=== PATIENT | female | born 1940 | race Caucasian/White ===

== ENCOUNTER → 2017-01-10 | Outpatient (CLI) | payer MEDICARE ==
[2016-09-27 12:33] VITALS: BP 109/71
[~2017-01-10] MED LIST: ACET325T9 PO; ALPR0.25 PO; ALPR0.5T6 PO; ATOR40TA PO; ATOR40TA59 PO; CALC-98 PO; CANA300T PO; CARB1TAB2 PO; CHOL10003 PO; CHOL2000 PO; CIPR500T PO; CLON0.5T PO; CLON0.5T3 PO; CYAN10005 PO; DICL100G18 TP; DROX300C PO; FERR-26 PO; FLUC100T7 PO; FLUD0.1T PO; GLUC100018 PO; HALO2TAB PO; HYDR-2758 PO; IBUP200T43 PO; INSU100V13 SQ; LACT1CAP6 PO; LEVO40CA PO; LORA0.5T PO; MECL25TA3 PO; METF1000 PO; MIDO10TA PO; MIDO5TAB PO; MIRT15TA2 PO; MULT-650 PO; NYST1POW2 PO; OMEP20TA63 PO; PIOG15TA42 PO; POLY255P PO; QUET25TA5 PO; ROPI0.5T PO; ROPI1TAB2 PO; SERT25TA PO; SIME125C PO; SITA1TAB11 PO; SITA1TAB7 PO; TRAM50TA PO; VENL75TA PO; VIT1CAPS17 PO; ZOLP5TAB5 PO; [UNRECOGNIZED DRUG - OTHER]; tumeric PO
--- NOTE | 2017-01-10 10:13 | RAD ---
Indication chronic pain. AP and lateral views of the left knee were obtained. Note is made of a previous examination 03/07/2015. No acute finding is seen. Total knee replacement is noted similar to the previous exam. Significant joint fluid is not seen. There is suspect bony demineralization IMPRESSION:: Total knee replacement. No acute finding
== END | disposition home or self-care (01) ==
LOC: DXRADRC 09:33
PROVIDERS: ATTEND Physician Assistant
DX: M25.562 Pain in left knee (principal)
CPT/HCPCS: 73560

== ENCOUNTER → 2017-04-05 | Outpatient (CLI) | payer MEDICARE ==
[2016-09-27 12:33] VITALS: BP 109/71
--- NOTE | 2017-04-05 16:13 | RAD ---
Indication left-sided rib pain. A single view of the chest was obtained as well as films targeted to left ribs. The chest is compared to a study 02/14/2015. The heart and pulmonary vessels appear normal. The lungs are clear of acute infiltrates. There is no significant pleural fluid. There is no pneumothorax films targeted to left ribs appear unremarkable. IMPRESSION: No acute finding seen in the chest. Normal plain films left ribs
== END | disposition home or self-care (01) ==
LOC: DXRADRC 15:34
PROVIDERS: ATTEND Physician Assistant
DX: R07.81 Pleurodynia (principal); W19.XXXA Unspecified fall, initial encounter
CPT/HCPCS: 71101

== ENCOUNTER 2018-08-04 08:21 | Emergency (ER) | payer MEDICARE ==
[~2018-08-04] VITALS: Ht 167.6 cm; Wt 50.9 kg
[~2018-08-04 08:21] MED LIST changes: +ACET500T68 PO; +CARB15DR3 EACHEYE; +CLON0.5T11 PO; -CLON0.5T3 PO; +CRESTOR10 MG PO; -FERR-26 PO; +FERR325T14 PO; +HYDR-2155 PO; -HYDR-2758 PO; -IBUP200T43 PO; +IBUP200T44 PO; +IBUP800T19 PO; +INSU100I11 SQ; +MELA3TAB2 PO; +MIRT15TA PO; +MODA100T26 PO; +NYST15PO9 TP; +POLY17PO5 PO; -POLY255P PO; +POLY255P11 PO; +SENN-80 PO
[2018-08-04] MEDS ORDERED: PROPOFOL 100 ML IV ONE (08:56)
[2018-08-04] MEDS ORDERED: ROCURONIUM 50 MG/5 ML VIAL. ONE (09:00)
[2018-08-04] MEDS ORDERED: PROPOFOL 10,000 MCG/ML (20ML) VIAL IV ONE (09:00)
[2018-08-04] MEDS ORDERED: ETOMIDATE 40 MG/20 ML VIAL. IV ONE (09:00)
[2018-08-04] MEDS ORDERED: PROPOFOL 100 ML IV PRN (09:00)
[2018-08-04 09:04] LABS: BASO % 0 % (0-3); EOS % 0 % (0-3); HEMATOCRIT 34.4 % (36.0-47.0); HEMOGLOBIN 10.7 g/dL (12.0-15.5); LYMPH # 1.6 x10^3/uL (1.0-4.8); LYMPH % 5 % (24-48); MEAN CORPUSCULAR HEMOGLOBIN 30 pg (25-35); MEAN CORPUSCULAR HGB CONC 31 g/dL (31-37); MEAN CORPUSCULAR VOLUME 97 fL (79-100); MONO # 1.4 x10^3/uL (0.0-1.1); MONO % 5 % (0-9); NEUT % 90 % (31-73); PLATELET COUNT 330 x10^3/uL (140-400); RED BLOOD COUNT 3.56 x10^6/uL (3.50-5.40); RED CELL DISTRIBUTION WIDTH 12.6 % (11.5-14.5)
[2018-08-04 09:05] LABS: ALBUMIN 3.7 g/dL (3.4-5.0); CALCIUM 9.5 mg/dL (8.5-10.1); CREATININE 1.4 mg/dL (0.6-1.0); GFR 36.6; TOTAL BILIRUBIN 0.2 mg/dL (0.2-1.0); TOTAL PROTEIN 7.4 g/dL (6.4-8.2)
--- NOTE | 2018-08-04 09:13 | RAD ---
Portable chest, 08/04/2018: HISTORY: Patient unresponsive Comparison is made to a study from 03/20/2018. An ET tube is in place with its tip located well above the filomena. A tube overlying the left upper quadrant of the abdomen is probably a gastrostomy tube. The heart size and pulmonary vascularity are normal. There is calcific plaquing of the aorta. There is minimal streaky infrahilar atelectasis/infiltrate on the right. The left lung is clear. There is no evidence of pneumothorax or pleural fluid. The bony structures are demineralized. IMPRESSION: 1. The ET tube is in satisfactory position. 2. Minimal right basilar atelectasis/infiltrate. Electronically signed by: Hermes Wiley MD (08/04/2018 9:08 AM) [facility]
[2018-08-04] MEDS ORDERED: CALCIUM GLUCONATE 1,000 MG/10 ML VIAL IV ONE (09:15)
[2018-08-04] MEDS ORDERED: INSULIN REGULAR 100 UNIT/ML 3ML VIAL. IV ONE (09:15)
--- NOTE | 2018-08-04 09:19 | PHYS DOC ---
Past History Past Medical History: Anemia, Arthritis, CAD, Dementia, Diabetes Past Surgical History: Appendectomy, Cholecystectomy, Hysterectomy, Knee Replacement, Other Smoking: Non-smoker Alcohol Use: None Drug Use: None Adult General Chief Complaint Chief Complaint: DYSPNEA/RESPIRATOY DISTRESS HPI HPI 77 yo female presents via EMS found unresponsive at the senior care. Patient comes from a senior care where she was reportedly found this morning unresponsive with agonal breathing. EMS was called. There is some confusion as to what the patient had decreased awareness and difficult to breathing last night or this all started sometime this morning. The senior care report is conflicting. We were initially reported hypoglycemia by the care facility, but EMS had a high blood sugar. The patient was found to have respiratory distress with agonal respirations. They were able to bag the patient during transport and got her saturations up to 94%. She was initially in the mid 80s. Patient's last known time well is last night. The patient is unable to provide any further history. Review of Systems Review of Systems Patient was unresponsive on arrival Current Medications Current Medications Current Medications Medications (Trade) Dose Ordered Sig/Jacey Start Time Stop Time Status Last Admin Dose Admin Propofol 100 ml @ As Directed STK-MED ONCE 08/04/18 08:56 08/04/18 08:58 DC Allergies Allergies Allergies Coded Allergies Type Severity Reaction Last Updated Verified Penicillins Allergy Intermediate 03/20/18 Yes proparacaine Allergy Intermediate 03/20/18 Yes I S O L A T I O N *CONTACT* Allergy Unknown 03/25/18 Yes Physical Exam Physical Exam Constitutional: Well developed, well nourished, agonal breathing, severe distress. [] HENT: Normocephalic, atraumatic, bilateral external ears normal, swollen tongue , no oral exudates, nose normal. [] Eyes: Pupils with some reactivity bilaterally, conjunctiva normal, no discharge. [] Neck: supple, no stridor. [] Cardiovascular:Heart rate regular rhythm, no murmur [] Lungs & Thorax: Bilateral breath sounds clear to auscultation, with minimal respiratory effort. Very shallow agonal breaths [] Abdomen: Feeding tube in place, no abnormal skin findings[] Skin: Warm, dry, no erythema, no rash. [] Back: No signs of trauma. [] Extremities: No cyanosis, no clubbing, no edema. [] Neurologic: Unable to determine due to unresponsiveness[] Psychologic: Unable to determine due to unresponsiveness[] EKG EKG [] Radiology/Procedures Radiology/Procedures [] Impressions: Portable chest, 08/04/2018: HISTORY: Patient unresponsive Comparison is made to a study from 03/20/2018. An ET tube is in place with its tip located well above the filomena. A tube overlying the left upper quadrant of the abdomen is probably a gastrostomy tube. The heart size and pulmonary vascularity are normal. There is calcific plaquing of the aorta. There is minimal streaky infrahilar atelectasis/infiltrate on the right. The left lung is clear. There is no evidence of pneumothorax or pleural fluid. The bony structures are demineralized. IMPRESSION: 1. The ET tube is in satisfactory position. 2. Minimal right basilar atelectasis/infiltrate. Electronically signed by: Hermes Wiley MD (08/04/2018 9:08 AM) [facility] DICTATED AND SIGNED BY: HERMES WILEY MD DATE: 08/04/18905 CC: OLEKSANDR MADSEN DO; KISHOR ARAMBULA PA Course & Med Decision Making Course & Med Decision Making Pertinent Labs and Imaging studies reviewed. (See chart for details) On arrival, the patient did appear to be in obvious respiratory distress. Her initial blood sugar was over 300. We were able to bag her with supplemental oxygen and had an O2 sat of 96%. We obtained initial lab work well continuing to bag the patient. It was obvious that the patient's breathing was not going to rapidly improve despite her normal O2 sat, so the decision was made to intubate her. See note below for more details. The patient's initial labs showed a troponin of 0.364. Review of her chart shows she's had previous troponins are similar. Her EKG did not show acute ST elevation. Her lactic acid was 3.8 and a potassium 6.0. The patient was given 1 g calcium gluconate and 10 units of regular insulin. No supplemental dextrose was given due to the patient' s elevated blood sugar. The patient received a second liter of normal saline. The patient checks her x-ray was suggestive of possible infiltrate. Her urine was also suggestive of infection. We gave her her 750 mg of levofloxacin. Her head CT did not show any acute findings. I discussed the patient with Dr. Lugo and he will accept the patient for admission at [facility] in the ICU. Intubation note: I used 0.3mg/kg etomidate and 0.6mg/kg rocuronium for RSI. Once the patient was adequately sedated and paralyzed, I used a #3 Prado blade to visualize the vocal cords. I was able to visualize them and placed a 7.5 mm ET tube. I watched the tube pass through the vocal cords. Auscultation of the chest had bilateral breath sounds. There was good color change on the colorimetric end tidal CO2 device. The ET tube was secured and a chest x-ray was performed. The ET tube was adequately placed. The patient was placed on a ventilator at 14 respirations a minute, 450 mL tidal volume, and 40% O2. We were able to achieve adequate oxygen saturation of 95%. The patient was placed on a propofol drip to maintain sedation. Greater than 35 minutes of critical care time was spent on this patient exclusive of other billable procedures. [] Dragon Disclaimer Dragon Disclaimer This electronic medical record was generated, in whole or in part, using a voice recognition dictation system. Departure Departure: Impression: Primary Impression: Respiratory failure Additional Impressions: Hyperkalemia Lactic acidosis Elevated troponin UTI (urinary tract infection) Aspiration pneumonia Disposition: XFER T-COUNT INCLUDES THE [facility] Condition: CRITICAL Referrals: KISHOR ARAMBULA (PCP) Problem Qualifiers Primary Impression: Respiratory failure Chronicity: acute Respiratory failure complication: hypoxia Qualified Codes : J96.01 - Acute respiratory failure with hypoxia Additional Impressions: UTI (urinary tract infection) Urinary tract infection type: acute cystitis Hematuria presence: with hematuria Qualified Codes: N30.01 - Acute cystitis with hematuria Aspiration pneumonia Aspiration pneumonia type: unspecified Laterality: right Lung location: lower lobe of lung Qualified Codes: J69.0 - Pneumonitis due to inhalation of food and vomit OLEKSANDR MADSEN DO Aug 04, 2018 09:19
[2018-08-04 09:31] LABS: % BANDS 2 % (0-9); % LYMPHS 6 % (24-48); % MONOS 8 % (0-10); % SEGS 84 % (35-66); PLT ESTIMATE ADEQUATE (ADEQUATE)
[2018-08-04 09:33] LABS: OVALOCYTES OCC
[2018-08-04 09:52] LABS: AMORPHOUS SEDIMENT,UR PRESENT /HPF; BACTERIA,URINE MANY /HPF (0-FEW); BILIRUBIN,URINE NEG (NEG); CLARITY,URINE CLOUDY; COLOR,URINE YELLOW; GLUCOSE,URINE 250 mg/dL (NEG); HYALINE CASTS, URINE OCC /HPF; NITRITE,URINE NEG (NEG); SQUAMOUS EPITHELIAL CELL,UR OCC /LPF; UROBILINOGEN,URINE 0.2 mg/dL (0.2 mg/dL)
[2018-08-04 10:21] VITALS: BP 189/84
--- NOTE | 2018-08-04 10:26 | RAD ---
PQRS Compliance Statement: One or more of the following individualized dose reduction techniques were utilized for this examination: 1. Automated exposure control 2. Adjustment of the mA and/or kV according to patient size 3. Use of iterative reconstruction technique CT HEAD WITHOUT CONTRAST History: FOUND UNRESPONSIVE IN ASSISTED, UNKNOWN TIME OF ONSET. PT HAS BEEN INTUBATED IN ER. HAS FEEDING TUBE FOR DYSPHAGIA. Comparison: CT head without contrast March 20, 2018. Procedure: Axial images are obtained of the head from the skull base through the vertex without IV contrast. Findings: The ventricles and sulci are prominent, consistent with age-related cerebral atrophy. There is moderate supratentorial white matter hypoattenuation. This is a nonspecific finding but is commonly due to chronic small vessel ischemic disease in a patient of this age. No mass-effect, midline shift, hemorrhage, extra-axial fluid collection, or obvious acute infarction is identified. Basilar cisterns are patent. Bone windows demonstrate no acute calvarial abnormality. The visualized paranasal sinuses are clear. Mastoid air cells are well aerated. IMPRESSION: 1. No acute intracranial abnormality. 2. Moderate supratentorial white matter changes of chronic small vessel ischemic disease. 3. Generalized cerebral atrophy. Electronically signed by: Osito Aramubla MD (08/04/2018 10:22 AM) [id number]
[2018-08-04] MEDS ORDERED: IV NORMAL SALINE 1,000ML 1,000 ML IV ONE (11:00)
[2018-08-04 11:18] LABS: BGAS PH 7.31 (7.35-7.45)
[2018-08-04] MEDS ORDERED: INSULIN LISPRO 300 UNITS/3 ML INSULN.PEN. SQ SCH (11:30)
[2018-08-05 12:30] LABS: TOXIC GRANULATION PRESENT
--- NOTE | 2018-08-08 07:04 | EKG ---
[address] [address] Test Date: 2018-08-04 Test Time: 08:23:05 Pat Name: MAYURI MANN Department: Room: Gender: F [employer]ach Truck Operator: EARNEST : 1940 Requested By: OLEKSANDR MADSEN Order Number: [id number] Reading MD: Adonay Staley MD Measurements Intervals [place] Rate: 71 P: 90 WV: 162 QRS: -24 QRSD: 96 T: 129 QT: 410 QTc: 451 Interpretive Statements SINUS RHYTHM CONSIDER ISAIAS/LATERAL INJURY Electronically Signed On 08-13-2018 10:11:47 [employer]OL GRINDER OPERATOR by Adonay Staley MD
== END 2018-08-04 10:45 | disposition short-term general hospital (02) ==
LOC: ER 08:21
DX: J96.01 Acute respiratory failure with hypoxia (principal); N30.01 Acute cystitis with hematuria; J69.0 Pneumonitis due to inhalation of food and vomit; E87.5 Hyperkalemia; E87.2 Acidosis; R79.89 Other specified abnormal findings of blood chemistry; M19.90 Unspecified osteoarthritis, unspecified site; I25.10 Atherosclerotic heart disease of native coronary artery without angina pectoris; E11.65 Type 2 diabetes mellitus with hyperglycemia; Z86.2 Personal history of diseases of the blood and blood-forming organs and certain disorders involving the immune mechanism; Z88.0 Allergy status to penicillin; Z91.041 Radiographic dye allergy status; Z88.4 Allergy status to anesthetic agent
CPT/HCPCS: 31500; 36415; 36600; 51702; 70450; 71045; 80048; 80053; 81001; 82550; 82803; 82947; 83605; 84484; 85007; 85025; 85610; 85730; 87040; 87086; 87186; 93005; 96361; 96365; 96375; 99291; J0610; J1815; J1956; J2704; 94002; J7030